=== PATIENT | male | born 1985 | race Caucasian/White ===

== ENCOUNTER 2016-10-02 16:46 | Inpatient (IN) | payer OTHER ==
[~2016-10-02] VITALS: Ht 185.4 cm; Wt 60.9 kg
[2016-10-02] MEDS ORDERED: SODIUM CHLORIDE FLUSH 10ML SYR IVF ONE (17:00)
[2016-10-02] MEDS ORDERED: SODIUM CHLORIDE 0.9% 1,000ML IVBOLUS ONE (17:00)
[2016-10-02] MEDS ORDERED: ONDANSETRON 2MG/ML, 2ML IVPush ONE (17:00)
[2016-10-02 17:35] LABS: HEMATOCRIT 47.9 % (39.2-51.8); HEMOGLOBIN 15.7 g/dL (13.7-18.0); WHITE BLOOD COUNT 26.1 x10^3/uL (3.4-10)
[2016-10-02 17:39] LABS: BLOOD UREA NITROGEN 9 mg/dL (7-18)
[2016-10-02] MEDS ORDERED: MORPHINE SULFATE 4 MG/ML, 1ML ONE (17:43)
[2016-10-02] MEDS ORDERED: ONDANSETRON 2MG/ML, 2ML ONE (17:43)
[2016-10-02] MEDS: MORPHINE SULFATE 4 MG/ML, 1ML IV PRN ×2 (18:10→19:01)
[2016-10-02 18:21] LABS: DIFF TOTAL CELLS COUNTED 100 CELL DIFF
[2016-10-02 18:24] LABS: VERIFY COUNTS? YES
[2016-10-02] MEDS ORDERED: DIPHENHYDRAMINE 50 MG/ML, 1ML ONE (18:45)
[2016-10-02] MEDS ORDERED: CLINDAMYCIN PMX 900MG/50ML 50 ML IV ONE (19:00)
[2016-10-02] MEDS ORDERED: HYDROmorphone 1 MG/ML, 1ML IV ONE (19:00)
[2016-10-02] MEDS ORDERED: DIPHENHYDRAMINE 50 MG/ML, 1ML IVPush ONE (19:00)
[2016-10-02] MEDS ORDERED: HYDROmorphone 1 MG/ML, 1ML ONE (19:07)
[2016-10-02] MEDS ORDERED: CLINDAMYCIN PMX 900MG/50ML 50 ML ONE (19:08)
[2016-10-02] MEDS ORDERED: methylPREDNISolone SOD SUCC 125 MG/2 ML IVPush SCH (19:30)
[2016-10-02] MEDS ORDERED: methylPREDNISolone SOD SUCC 125 MG/2 ML ONE (19:40)
[2016-10-02] MEDS ORDERED: POLYETHYLENE GLYCOL 17 GM PACKET PO PRN (22:30)
[2016-10-02] MEDS ORDERED: ACETAMINOPHEN 325 MG TABLET PO PRN (22:30)
[2016-10-02] MEDS ORDERED: VANCOMYCIN PER PHARMACY MC PRN (22:30)
[2016-10-02] MEDS ORDERED: HYDROmorphone 2 MG/ML, 1ML IVPush PRN (22:30)
[2016-10-02] MEDS ORDERED: ONDANSETRON 2MG/ML, 2ML IVPush PRN (22:30)
[2016-10-02] MEDS ORDERED: LORazepam 2 MG/ML, 1ML IVPush PRN (22:30)
[2016-10-02] MEDS ORDERED: ZOLPIDEM 5MG TABLET PO PRN (22:30)
[2016-10-02] MEDS ORDERED: BISACODYL 10 MG SUPP PR PRN (22:30)
[2016-10-02] MEDS ORDERED: LACTOBACILLUS CHEW TABLET PO SCH (22:30)
[2016-10-02] MEDS ORDERED: DOCUSATE 100 MG CAPSULE PO PRN (22:30)
[2016-10-02] MEDS: LACTATED RINGERS 1,000 ML IV SCH (23:00)
[2016-10-02 23:16] VITALS: BP 130/81
[2016-10-02] MEDS ORDERED: PHARMACOKINETIC CONSULTATION MC ONE (23:30)
[2016-10-02] MEDS ORDERED: PHARMACOKINETIC MONITORING MC PRN (23:30)
[2016-10-02] MEDS: VANCOMYCIN 1,100 MG in SODIUM CHLORIDE 0.9% 250 ML IV SCH (23:39)
[2016-10-03 00:27] VITALS: BP 120/77
[2016-10-03] MEDS: CLINDAMYCIN PMX 600MG/50ML 50 ML IV SCH ×3 (03:53→19:55)
[2016-10-03 06:25] LABS: BLOOD UREA NITROGEN 10 mg/dL (7-18)
[2016-10-03 06:32] LABS: ASPARTATE AMINO TRANSFERASE 9 U/L (15-37)
[2016-10-03 06:56] LABS: HEMATOCRIT 41.9 % (39.2-51.8); HEMOGLOBIN 13.8 g/dL (13.7-18.0); WHITE BLOOD COUNT 22.5 x10^3/uL (3.4-10)
[2016-10-03 07:38] LABS: DIFF TOTAL CELLS COUNTED 100 CELL DIFF
[2016-10-03 07:39] LABS: VERIFY COUNTS? YES
[2016-10-03 08:19] LABS: HIV 1&2 ANTIBODY SCREEN Nonreactive (Nonreactive); HIV-1 p24 ANTIGEN Nonreactive (Nonreactive)
[2016-10-03 09:26] VITALS: BP 123/80
[2016-10-03] MEDS: LACTATED RINGERS 1,000 ML IV SCH ×2 (10:27→19:55)
[2016-10-03] MEDS: VANCOMYCIN 1,100 MG in SODIUM CHLORIDE 0.9% 250 ML IV SCH (13:49)
[2016-10-03 15:30] VITALS: BP 96/55
[2016-10-03] MEDS: LACTOBACILLUS 1GM/ PACKET PO SCH ×2 (17:19→19:55)
[2016-10-03 19:24] VITALS: BP 119/73
[2016-10-04] MEDS: OXYcodone IR 5MG TABLET PO PRN (00:12)
[2016-10-04] MEDS: VANCOMYCIN 1,100 MG in SODIUM CHLORIDE 0.9% 250 ML IV SCH ×2 (00:12→13:29)
[2016-10-04 00:43] VITALS: BP 126/77
[2016-10-04] MEDS: LACTATED RINGERS 1,000 ML IV SCH ×3 (03:20→22:49)
[2016-10-04] MEDS: CLINDAMYCIN PMX 600MG/50ML 50 ML IV SCH ×3 (03:20→19:44)
[2016-10-04 06:47] VITALS: BP 127/84
[2016-10-04 08:49] LABS: HEMATOCRIT 36.6 % (39.2-51.8); HEMOGLOBIN 12.3 g/dL (13.7-18.0); WHITE BLOOD COUNT 18.5 x10^3/uL (3.4-10)
[2016-10-04 09:03] LABS: BLOOD UREA NITROGEN 8 mg/dL (7-18)
[2016-10-04] MEDS: LACTOBACILLUS 1GM/ PACKET PO SCH ×3 (10:00→19:45)
[2016-10-04 13:35] VITALS: BP 118/70
[2016-10-04 18:33] VITALS: BP 126/77
[2016-10-04] MEDS ORDERED: DOCUSATE 100 MG CAPSULE PO PRN (22:00)
[2016-10-04] MEDS ORDERED: BISACODYL 10 MG SUPP PR PRN (22:00)
[2016-10-04] MEDS ORDERED: PHARMACOKINETIC MONITORING MC PRN (22:00)
[2016-10-04] MEDS ORDERED: LORazepam 2 MG/ML, 1ML IVPush PRN (22:00)
[2016-10-04] MEDS ORDERED: ONDANSETRON 2MG/ML, 2ML IVPush PRN (22:00)
[2016-10-04] MEDS ORDERED: POLYETHYLENE GLYCOL 17 GM PACKET PO PRN (22:00)
[2016-10-04] MEDS ORDERED: ZOLPIDEM 5MG TABLET PO PRN (22:00)
[2016-10-04] MEDS ORDERED: DIPHENHYDRAMINE 50 MG CAPSULE PO PRN (23:30)
[2016-10-05] MEDS ORDERED: VANCOMYCIN 1,100 MG in SODIUM CHLORIDE 0.9% 250 ML IV SCH (01:00)
[2016-10-05 01:05] VITALS: BP 118/71
[2016-10-05] MEDS: CLINDAMYCIN PMX 600MG/50ML 50 ML IV SCH (03:35)
[2016-10-05 06:00] LABS: HEMOGLOBIN 12.8 g/dL (13.7-18.0); WHITE BLOOD COUNT 14.4 x10^3/uL (3.4-10)
[2016-10-05 06:12] LABS: BLOOD UREA NITROGEN 3 mg/dL (7-18)
[2016-10-05] MEDS: LACTATED RINGERS 1,000 ML IV SCH ×2 (06:34→16:59)
[2016-10-05 08:29] VITALS: BP 142/82
[2016-10-05] MEDS: LACTOBACILLUS 1GM/ PACKET PO SCH ×2 (08:37→16:59)
[2016-10-05] MEDS: VANCOMYCIN PMX 1GM/200ML 200 ML IV SCH ×2 (11:01→20:11)
[2016-10-05 14:57] VITALS: BP 128/73
[2016-10-05] MEDS ORDERED: DIPHENHYDRAMINE 50 MG/ML, 1ML IVPush ONE (18:29)
[2016-10-05] MEDS ORDERED: methylPREDNISolone SOD SUCC 125 MG/2 ML IVPush ONE (18:29)
[2016-10-05] MEDS ORDERED: DIPHENHYDRAMINE 50 MG/ML, 1ML ONE (18:33)
[2016-10-05] MEDS ORDERED: OMNIPAQUE 350 MG/ML, 100ML BOTTLE ONE (19:47)
[2016-10-05] MEDS: ENOXAPARIN 40 MG/0.4 ML SQ SCH (20:11)
[2016-10-05] MEDS ORDERED: DIPHENHYDRAMINE 50 MG/ML, 1ML IVPush PRN (20:30)
[2016-10-05 20:45] VITALS: BP 137/88
[2016-10-06 00:41] VITALS: BP 123/78
[2016-10-06] MEDS: methylPREDNISolone SOD SUCC 125 MG/2 ML IVPush SCH ×3 (00:55→13:25)
[2016-10-06] MEDS: LACTOBACILLUS 1GM/ PACKET PO SCH ×4 (00:55→21:00)
[2016-10-06] MEDS: VANCOMYCIN PMX 1GM/200ML 200 ML IV SCH ×3 (04:15→20:00)
[2016-10-06 07:04] VITALS: BP 118/63
[2016-10-06 13:17] VITALS: BP 115/76
[2016-10-06] MEDS: CEFTAROLINE 600 MG in SODIUM CHLORIDE 0.9% 100 ML IV SCH (15:52)
[2016-10-06] MEDS: ACETAMINOPHEN 325 MG TABLET PO PRN (18:07)
[2016-10-06] MEDS: ENOXAPARIN 40 MG/0.4 ML SQ SCH (18:07)
[2016-10-06 19:51] VITALS: BP 118/70
[2016-10-06] MEDS ORDERED: ONDANSETRON ODT 4 MG PO PRN (22:30)
[2016-10-06] MEDS: OXYcodone IR 5MG TABLET PO PRN (22:31)
[2016-10-07 03:47] VITALS: BP 120/75
[2016-10-07] MEDS: OXYcodone IR 5MG TABLET PO PRN ×2 (04:23→10:27)
[2016-10-07] MEDS: VANCOMYCIN PMX 1GM/200ML 200 ML IV SCH (05:46)
[2016-10-07 06:56] VITALS: BP 111/65
[2016-10-07] MEDS: CEFTAROLINE 600 MG in SODIUM CHLORIDE 0.9% 100 ML IV SCH ×4 (07:52→23:49)
[2016-10-07] MEDS: LACTOBACILLUS 1GM/ PACKET PO SCH ×3 (07:55→21:04)
[2016-10-07 11:06] LABS: HEMATOCRIT 41.3 % (39.2-51.8); HEMOGLOBIN 13.5 g/dL (13.7-18.0); WHITE BLOOD COUNT 23.1 x10^3/uL (3.4-10)
[2016-10-07 11:19] LABS: BLOOD UREA NITROGEN 9 mg/dL (7-18)
[2016-10-07 13:08] VITALS: BP 117/73
[2016-10-07] MEDS: ACETAMINOPHEN 325 MG TABLET PO PRN (16:30)
[2016-10-07] MEDS: ENOXAPARIN 40 MG/0.4 ML SQ SCH (18:15)
[2016-10-07 21:00] VITALS: BP 118/75
[2016-10-08 03:26] VITALS: BP 109/69
[2016-10-08 06:10] LABS: HEMATOCRIT 40.1 % (39.2-51.8); HEMOGLOBIN 13.1 g/dL (13.7-18.0); WHITE BLOOD COUNT 14.1 x10^3/uL (3.4-10)
[2016-10-08 06:24] LABS: ASPARTATE AMINO TRANSFERASE 8 U/L (15-37); BLOOD UREA NITROGEN 12 mg/dL (7-18)
[2016-10-08 07:45] VITALS: BP 120/78
[2016-10-08] MEDS: LACTOBACILLUS 1GM/ PACKET PO SCH ×3 (08:12→21:11)
[2016-10-08] MEDS: CEFTAROLINE 600 MG in SODIUM CHLORIDE 0.9% 100 ML IV SCH ×2 (08:12→16:27)
[2016-10-08 13:55] VITALS: BP 113/71
[2016-10-08] MEDS ORDERED: POLYETHYLENE GLYCOL 17 GM PACKET PO PRN (15:00)
[2016-10-08] MEDS ORDERED: MAGNESIUM HYDROXIDE 8%, 30ML UDC PO PRN (15:30)
[2016-10-08] MEDS: ENOXAPARIN 40 MG/0.4 ML SQ SCH (18:17)
[2016-10-08 19:57] VITALS: BP 111/69
[2016-10-09] MEDS: CEFTAROLINE 600 MG in SODIUM CHLORIDE 0.9% 100 ML IV SCH ×3 (00:46→16:06)
[2016-10-09 02:56] VITALS: BP 116/71
[2016-10-09 05:27] LABS: HEMOGLOBIN 14.1 g/dL (13.7-18.0)
[2016-10-09 05:53] LABS: ASPARTATE AMINO TRANSFERASE 11 U/L (15-37); BLOOD UREA NITROGEN 10 mg/dL (7-18)
[2016-10-09 07:32] VITALS: BP 124/78
[2016-10-09] MEDS: LACTOBACILLUS 1GM/ PACKET PO SCH ×2 (07:52→16:06)
[2016-10-09 13:33] VITALS: BP 151/84
[2016-10-09] MEDS ORDERED: MIRTAZAPINE 15 MG TABLET PO PRN (18:30)
[2016-10-09] MEDS: ENOXAPARIN 40 MG/0.4 ML SQ SCH (18:33)
== END 2016-10-09 19:10 | disposition left against medical advice (07) | DRG 871 ==
LOC: ED 20:53 → EDIP 20:54 → ED 21:16 → 4NOR 22:40
PROVIDERS: ATTEND Internal Medicine
DX: A41.02 Sepsis due to Methicillin resistant Staphylococcus aureus (principal); I26.90 Septic pulmonary embolism without acute cor pulmonale; I76 Septic arterial embolism; E43 Unspecified severe protein-calorie malnutrition; E87.1 Hypo-osmolality and hyponatremia; F11.20 Opioid dependence, uncomplicated; I38 Endocarditis, valve unspecified; L03.211 Cellulitis of face; Z68.1 Body mass index [BMI] 19.9 or less, adult; D63.8 Anemia in other chronic diseases classified elsewhere; K04.7 Periapical abscess without sinus; F19.10 Other psychoactive substance abuse, uncomplicated; K08.89 Other specified disorders of teeth and supporting structures; Z63.9 Problem related to primary support group, unspecified; Z83.1 Family history of other infectious and parasitic diseases; Z81.1 Family history of alcohol abuse and dependence; Z88.0 Allergy status to penicillin; Z59.0 Homelessness; Z88.6 Allergy status to analgesic agent
CPT/HCPCS: 36415; 70100; 70487; 71275; 80048; 80053; 80074; 80202; 82040; 83605; 85025; 85651; 86141; 86703; 87040; 87077; 87147; 87150; 87186; 87899; 93005; 93306; 96361; 96365; 96366; 96375; J0712; J1170; J1650; J2405; J3370; Q9967; G0435; J1200; J2930; J7030; J7050; J7120

== ENCOUNTER 2020-03-03 22:11 | Emergency (ER) | payer MEDICAID, OTHER ==
[~2020-03-03] VITALS: Ht 185.4 cm; Wt 63.2 kg
[2020-03-03 23:10] VITALS: BP 124/81
== END 2020-03-03 23:13 | disposition home or self-care (01) ==
LOC: ED 22:31
DX: L01.01 Non-bullous impetigo (principal); K13.0 Diseases of lips; L03.211 Cellulitis of face; F11.10 Opioid abuse, uncomplicated; Z76.0 Encounter for issue of repeat prescription
CPT/HCPCS: 99283